=== PATIENT | female | born 1945 | race Hispanic/Latino ===

== ENCOUNTER → 2018-02-28 | Outpatient (CLI) | payer MEDICARE ==
[~2018-02-28] MED LIST: ASPI-1012 PO; CLON1TAB5 PO; HYDR-309 PO; HYDR25TA PO; IOPAMIDOL-370 75 ML VIAL IV ONE; ISOVUE-370 50ML VIAL IV ONE; LOSA100T29 PO
== END | disposition home or self-care (01) ==
LOC: OIH 08:33
PROVIDERS: ATTEND Internal Medicine Cardiovascular Disease
DX: I73.9 Peripheral vascular disease, unspecified (principal); M25.80 Other specified joint disorders, unspecified joint
CPT/HCPCS: 75635; Q9967 ×2

== ENCOUNTER 2024-01-06 18:40 | Emergency (ER) | payer OTHER, MEDICARE ==
[~2024-01-06] VITALS: Ht 157.5 cm; Wt 73.5 kg
[~2024-01-06 18:40] MED LIST changes: +CLON1TAB12 PO; -CLON1TAB5 PO; -HYDR-309 PO; +HYDR-4457 PO; -IOPAMIDOL-370 75 ML VIAL IV ONE; -ISOVUE-370 50ML VIAL IV ONE; -LOSA100T29 PO; +LOSA100T59 PO
[2024-01-06] MEDS: ACETAMINOPHEN 325 MG TAB PO ONE (20:25)
[2024-01-06 21:29] VITALS: BP 140/88; PULSE 75; RESP 18
== END 2024-01-06 21:35 | disposition home or self-care (01) ==
LOC: EDH 18:40
DX: S00.03XA Contusion of scalp, initial encounter (principal); S14.109A Unspecified injury at unspecified level of cervical spinal cord, initial encounter; S40.012A Contusion of left shoulder, initial encounter; I10 Essential (primary) hypertension; E11.9 Type 2 diabetes mellitus without complications; Z79.82 Long term (current) use of aspirin; Z79.899 Other long term (current) drug therapy; Z90.49 Acquired absence of other specified parts of digestive tract; W18.39XA Other fall on same level, initial encounter; Y93.89 Activity, other specified; Y92.89 Other specified places as the place of occurrence of the external cause; Y99.8 Other external cause status
CPT/HCPCS: 70450; 72125; 73030